=== PATIENT | female | born 1980 | race Caucasian/White ===

== ENCOUNTER 2022-08-15 14:02 | Outpatient (CLI) | payer OTHER ==
--- NOTE | 2022-08-18 10:08 | Mammography Report ---
BILATERAL DIGITAL SCREENING MAMMOGRAM 3D/2D: 08/15/2022 CLINICAL: Routine screening. Baseline exam. No prior exams were available for comparison. Both breasts are heterogeneously dense, which may obscure small masses (category c / 51-75% glandular tissue). No significant masses, calcifications, or other findings are seen in either breast. IMPRESSION: NEGATIVE There is no mammographic evidence of malignancy. A 1 year screening mammogram is recommended. This exam was interpreted at Station ID: [id number]. NOTE: For mammograms, a report in lay terms will be sent to the patient. Approximately 15% of breast malignancies will not be visualized mammographically. In the management of a palpable breast mass, a negative mammogram must not discourage biopsy of a clinically suspicious lesion. Electronically Signed By: Abdoul Mancini M.D., jr/jerry:08/15/2022 16:04:48 ACR BI-RADS Category 1: Negative 3341F PARENCHYMAL PATTERN: (D) - The breast(s) demonstrate(s) heterogeneously dense fibroglandular suleiman luther. BI-RADS CATEGORY: (1) - 1 RECOMMENDATION: (ANNUAL) - Recommend routine annual screening mammography. [id number] 1 year screening LATERALITY: (B)
== END 2022-08-15 14:03 | disposition home or self-care (01) ==
LOC: DI 14:02
PROVIDERS: ATTEND Nurse Practitioner
DX: Z12.31 Encounter for screening mammogram for malignant neoplasm of breast (principal)

== ENCOUNTER 2023-07-06 07:49 | Outpatient (CLI) | payer BC ==
[2023-07-06 08:37] LABS: CHOL/HDL RATIO 3.1 (<4.4); CHOLESTEROL 174 mg/dL; HDL CHOLESTEROL 57 mg/dL; LDL CHOLESTEROL,CALCULATED 88 mg/dL; LDL/HDL RATIO 1.5 (<4.4); TRIGLYCERIDES 145 mg/dL (48-352); VLDL CHOLESTEROL 29 mg/dL
[2023-07-06 08:47] LABS: THYROID STIMULATING HORMONE 4.61 uIU/mL (0.34-5.60)
[2023-07-06 11:44] LABS: ESTIMATED AVERAGE GLUCOSE 100 mg/dL (70-100); HEMOGLOBIN A1c% 5.1 % (4.27-6.07)
== END 2023-07-06 07:50 | disposition home or self-care (01) ==
LOC: LAB 07:49
PROVIDERS: ATTEND Nurse Practitioner
DX: E07.9 Disorder of thyroid, unspecified (principal); Z13.220 Encounter for screening for lipoid disorders; Z13.1 Encounter for screening for diabetes mellitus
CPT/HCPCS: 36415; 80061; 83036; 83721; 84443

== ENCOUNTER 2023-08-27 08:59 | Outpatient (CLI) | payer BC ==
--- NOTE | 2023-08-27 16:56 | Mammography Report ---
BILATERAL DIGITAL SCREENING MAMMOGRAM 3D/2D: 08/27/2023 Comparison is made to exam dated: 08/15/2022 mammogram - [facility]. Both breasts are heterogeneously dense, which may obscure small masses (category c / 51-75% glandular tissue). No significant masses, calcifications, or other findings are seen in either breast. There has been no significant interval change. IMPRESSION: NEGATIVE There is no mammographic evidence of malignancy. A 1 year screening mammogram is recommended. Based on the Tyrer Cuzick model (a risk assessment model) the patients lifetime risk is 15.3% and he r 10 year risk is 2.3%. According to the ACR, ACS, and NCCN guidelines, an annual breast MRI exam ree ng with mammogram is recommended if the patients lifetime risk is 20% or greater. This exam was interpreted at Station ID: [id number]. NOTE: For mammograms, a report in lay terms will be sent to the patient. Approximately 15% of breast malignancies will not be visualized mammographically. In the management of a palpable breast mass, a negative mammogram must not discourage biopsy of a clinically suspicious lesion. Electronically Signed By: Danny [email or web address]/jerry:08/27/2023 15:25:59 letter sent: No_Letter ACR BI-RADS Category 1: Negative 3341F PARENCHYMAL PATTERN: (D) - The breast(s) demonstrate(s) heterogeneously dense fibroglandular suleiman luther. BI-RADS CATEGORY: (1) - 1 Mammogram [id number] 1 year screening LATERALITY: (B)
== END 2023-08-27 09:00 | disposition home or self-care (01) ==
LOC: DI 08:59
PROVIDERS: ATTEND Nurse Practitioner
DX: Z12.31 Encounter for screening mammogram for malignant neoplasm of breast (principal); R92.333 Mammographic heterogeneous density, bilateral breasts